=== PATIENT | female | born 2000 | race Caucasian/White ===

== ENCOUNTER 2024-05-23 06:26 | Outpatient (REF) | payer OTHER, SELFPAY ==
--- NOTE | ~2024-05-23 | US_ITS ---
EXAMINATION: US PELVIS CLINICAL INFORMATION: Postcoital bleed. LMP approximately 04/18/2024. COMPARISON: None available. TECHNIQUE: Ultrasound of the pelvis is performed using both transabdominal and transvaginal transducers along with Doppler. Transvaginal imaging is performed due to inadequate visualization transabdominally. FINDINGS: Anteverted uterus with normal morphology measuring 8.5 x 2.6 x 4.6 cm. No uterine lesions. Homogeneous endometrium measuring 0.5 cm in thickness. No focal endometrial abnormality. Ovaries are normal in morphology and size. The right ovary measures 2.8 x 1.7 x 2.7 cm, 5.5 mL and the left ovary measures 2.7 x 1 x 1.6 cm, 2.7 mL. No adnexal mass. No free fluid. US/US pelvic and transvaginal IMPRESSION: No acute sonographic abnormalities. Electronically signed by: Carolynn Baird MD 05/23/2024 04:10 PM EDT
== END 2024-05-23 06:27 | disposition home or self-care (01) ==
LOC: HO.UMASIMG 06:26
PROVIDERS: Visit Provider Family Medicine
DX: N93.0 Postcoital and contact bleeding (principal)
CPT/HCPCS: 76830; 76856